=== PATIENT | male | born 1995 | race Two or more races ===

== ENCOUNTER 2021-05-27 06:24 | Emergency (ER) | payer MEDICAID, OTHER ==
[~2021-05-27] VITALS: Ht 172.7 cm; Wt 80.3 kg
[2021-05-27 07:30] VITALS: BP 105/71
== END 2021-05-27 09:01 | disposition home or self-care (01) ==
LOC: ER 06:24
DX: U07.1 COVID-19 (principal); J06.9 Acute upper respiratory infection, unspecified
CPT/HCPCS: 36415; 71045; 87426